=== PATIENT | male | born 1965 | race American Indian/Alaskan Native ===

== ENCOUNTER 2017-01-01 23:08 | Emergency (ER) | payer SELFPAY ==
[~2017-01-01 23:08] MED LIST: ADRENALIN ONE; CALCIUM CHLORIDE IV ONE; SODIUM BICARBONATE IV ONE
--- NOTE | 2017-01-01 23:28 | Emergency Department Report ---
ED CPR HPI - General Chief Complaint: Cardiac Arrest/CPR Stated Complaint: CARDIAC ARREST Time Seen by Provider: 01/01/17 23:25 Source: EMS (verbal report received from EMS. ems notes not available at time of chart dictation) Mode of arrival: Stretcher Limitations: Altered Mental Status - History of Present Illness Initial Comments: This is a 51-year-old male. He is previously unknown to me. He is brought to the hospital by EMS as a CODE BLUE out of hospital cardiac arrest. As per verbal report from EMS, patient collapsed at a nearby gas station. EMS reports that initial rhythm was V. tach/V. fib. EMS reports shocking the patient 3 times, and gave 3 rounds of epinephrine, and intubated the patient in the field. No pulses were obtained in the field. Upon arrival to the ER, patient was pulseless, intubated, pupils were midpoint and minimally reactive to light bilaterally. His initial rhythm was pulseless electrical activity. Patient received high-quality CPR, and appropriate ACLS medications. He continued to remain in pulseless electrical activity, no pulses could be obtained, and serial bedside ultrasounds demonstrated no coordinated ventricular activity. Therefore, resuscitation efforts were terminated secondary to medical futility. Complaint: collapsed during activity -: minute(s) Place: street Bystander CPR Performed: No AED Applied by Bystander/Sheet Pile Driver Operator: No Number of Shocks Delivered: 3 Initial Findings in the Field: unresponsive, no respirations, no pulse, VTACH/ VFIB ROSC in the Field: No Associated Injuries: No Treatments Prior to Arrival: intubation, chest compressions, defribrillated shocks #, epinephrine mgs # - Related Data Previous Rx's Medication Instructions Recorded Last Taken Type Acetaminophen/Codeine [Tylenol #3] 1 tab PO Q6H PRN #14 tab 11/12/15 Unknown Rx Cyclobenzaprine [Flexeril] 10 mg PO TID PRN #20 tablet 11/12/15 Unknown Rx Allergies Allergy/AdvReac Type Severity Reaction Status Date / Time No Known Allergies Allergy Unverified 11/12/15 22:57 ED Review of Systems ROS: Stated complaint: CARDIAC ARREST Other details as noted in HPI Constitutional: see HPI Eyes: as per HPI ENT: as per HPI Respiratory: see HPI Cardiovascular: as per HPI Endocrine: see HPI Gastrointestinal: as per HPI Genitourinary: as per HPI Musculoskeletal: as per HPI Skin: as per HPI Neurological: as per HPI Psychiatric: as per HPI Hematological/Lymphatic: as per HPI ED Past Medical Hx - Past Medical History Hx Hypertension: Yes Additional medical history: hyperlipidemia - Surgical History Hx Coronary Stent: Yes - Social History Smoking Status: Current Every Day Smoker Substance Use Type: None - Medications Home Medications: Home Medications Medication Instructions Recorded Confirmed Last Taken Type Acetaminophen/Codeine [Tylenol #3] 1 tab PO Q6H PRN #14 tab 11/12/15 Unknown Rx Cyclobenzaprine [Flexeril] 10 mg PO TID PRN #20 tablet 11/12/15 Unknown Rx ED Physical Exam - General Limitations: Other (patient intubated, GCS of 3, nonverbal) General appearance: other (intubated, nonverbal) - Head Head exam: Present: atraumatic, normocephalic - Eye Eye exam: Present: other (pupils midpoint, minimally reactive to light bilaterally.) - ENT ENT exam: Present: other (endotracheal tube noted in oropharynx.) - Neck Neck exam: Present: normal inspection - Respiratory Respiratory exam: Present: other (patient has coarse rhonchorous breath sounds when bagged valve mask ventilation is applied to the endotracheal tube. Otherwise, no breath sounds are appreciated) - Cardiovascular Cardiovascular Exam: Present: other (patient is pulseless, no cardiac activity) - GI/Abdominal GI/Abdominal exam: Present: soft - Rectal Rectal exam: Present: deferred - exam: Present: normal inspection - Extremities Exam Extremities exam: Present: normal inspection - Back Exam Back exam: Present: normal inspection - Neurological Exam Neurological exam: Present: other (GCS of 3, nonverbal) - Psychiatric Psychiatric exam: Present: other (patient is nonverbal) - Skin Skin exam: Present: dry Critical care attestation.: If time is entered above; I have spent that time in minutes in the direct care of this critically ill patient, excluding procedure time. ED Disposition Clinical Impression: Cardiac arrest Disposition: Is pt being admited?: No Does the pt Need Aspirin: No Condition: Undetermined
== END 2017-01-02 06:19 ==
LOC: ED 23:08
DX: I46.9 Cardiac arrest, cause unspecified (principal); I10 Essential (primary) hypertension; F17.200 Nicotine dependence, unspecified, uncomplicated; E78.5 Hyperlipidemia, unspecified
CPT/HCPCS: 99285; J0171